=== PATIENT | male | born 1940 | race Caucasian/White ===

== ENCOUNTER → 2016-07-30 | Outpatient (CLI) | payer MEDICARE ==
[~2016-07-30] MED LIST: ALLOPURINOL100 MG PO; ASPIRIN81 M1 PO; CELEXA20 MG PO; COZAAR25 M1 PO; GLIMEPIRIDE2 MG PO; HYDROCODONE BIT1 T11 PO; KEFLEX500 M1 PO; MULTIPLE VITAMI1 CAP PO; Metformin Hydr500 MG PO; VITAMIN D32000 IU PO; ZESTRIL5 MG PO; ZOCOR20 MG PO
== END | disposition home or self-care (01) ==
LOC: RAD 14:15
DX: M47.892 Other spondylosis, cervical region (principal); M25.511 Pain in right shoulder; M25.78 Osteophyte, vertebrae; M54.2 Cervicalgia

== ENCOUNTER → 2017-02-09 | Outpatient (CLI) | payer MEDICARE ==
[2017-02-09 12:26] LABS: HEMATOCRIT 41.4 % (42.0-52.0); HEMOGLOBIN 13.4 g/dl (14.0-18.0)
[2017-02-09 12:48] LABS: CHLORIDE 103 mmol/L (98-107); POTASSIUM 4.6 mmol/L (3.5-5.1); SODIUM 137 mmol/L (136-145)
[2017-02-09 13:11] LABS: ALBUMIN 3.9 gm/dl (3.1-4.5); ALKALINE PHOSPHATASE 74 U/L (45-117); BUN 24 mg/dl (7-24); CHOLESTEROL 121 mg/dL (<200); CREATININE 1.18 mg/dL (0.70-1.30); HDL CHOLESTEROL 35 mg/dl (40-60); LDL CHOLESTEROL 49 mg/dL (9-159); SGOT/AST 14 IU/L (3-35); SGPT/ALT 26 U/L (12-78); TOTAL PROTEIN 7.6 gm/dL (6.4-8.2); TRIGLYCERIDES 185 mg/dl (<150); VLDL CHOLESTEROL 37 mg/dL (6-40)
[2017-02-10 10:03] LABS: CREATININE,URINE 94.4 mg/dL (Not Estab.); MICRO ALBUMIN/CRE RATIO 5.9 (0.0-30.0)
== END | disposition home or self-care (01) ==
LOC: LAB 11:56
PROVIDERS: Internal Medicine
DX: Z12.5 Encounter for screening for malignant neoplasm of prostate (principal); I25.10 Atherosclerotic heart disease of native coronary artery without angina pectoris; E11.9 Type 2 diabetes mellitus without complications; E78.5 Hyperlipidemia, unspecified

== ENCOUNTER → 2017-06-17 | Outpatient (CLI) | payer MEDICARE ==
[2017-06-17 11:17] LABS: BASO # 0.1 10*3/uL (0.0-0.1); BASO % 1.6 % (0.0-1.0); EOS # 0.9 10*3/uL (0.0-0.4); EOS % 10.3 % (1.0-4.0); HEMATOCRIT 42.8 % (42.0-52.0); HEMOGLOBIN 13.7 g/dl (14.0-18.0); LYMPH # 2.1 10*3/uL (1.3-4.4); MEAN CELL VOLUME 98.2 fl (80.0-94.0); MEAN CORPUSCULAR HGB 31.4 pg (27.0-31.0); MEAN PLATELET VOLUME 9.9 fl (9.6-12.3); MONO # 0.8 10*3/uL (0.1-1.0); NEUT # 4.4 10*3/uL (2.3-7.9); NEUT % 52.7 % (47.0-73.0); PLATELET COUNT AUTOMATED 262 10*3/uL (130-400); RED BLOOD COUNT 4.36 10*6/uL (4.50-5.90); RED CELL DISTRI WIDTH 12.6 % (0-14.5); WHITE BLOOD COUNT 8.3 10*3/uL (4.8-10.8)
[2017-06-17 11:40] LABS: ALBUMIN 3.9 gm/dl (3.1-4.5); ALKALINE PHOSPHATASE 72 U/L (45-117); BUN 13 mg/dl (7-24); CHLORIDE 102 mmol/L (98-107); CHOLESTEROL 137 mg/dL (<200); CREATININE 1.17 mg/dL (0.70-1.30); HDL CHOLESTEROL 29 mg/dl (40-60); LDL CHOLESTEROL 57 mg/dL (9-159); POTASSIUM 4.5 mmol/L (3.5-5.1); SGOT/AST 18 IU/L (3-35); SGPT/ALT 23 U/L (12-78); SODIUM 138 mmol/L (136-145); TOTAL PROTEIN 7.4 gm/dL (6.4-8.2); TRIGLYCERIDES 254 mg/dl (<150); VLDL CHOLESTEROL 51 mg/dL (6-40)
== END | disposition home or self-care (01) ==
LOC: LAB 10:38
PROVIDERS: Internal Medicine
DX: E78.5 Hyperlipidemia, unspecified (principal); I25.10 Atherosclerotic heart disease of native coronary artery without angina pectoris; E11.9 Type 2 diabetes mellitus without complications

== ENCOUNTER → 2017-10-04 | Outpatient (CLI) | payer MEDICARE ==
[2017-10-04 08:13] LABS: BASO # 0.1 10*3/uL (0.0-0.1); BASO % 1.6 % (0.0-1.0); EOS # 0.4 10*3/uL (0.0-0.4); EOS % 6.3 % (1.0-4.0); HEMATOCRIT 41.1 % (42.0-52.0); HEMOGLOBIN 12.9 g/dl (14.0-18.0); LYMPH # 1.8 10*3/uL (1.3-4.4); LYMPH % 26.1 % (27.0-41.0); MEAN CORPUSCULAR HGB 31.1 pg (27.0-31.0); MEAN CORPUSCULAR HGB CONC 31.4 g/dl (33.0-37.0); MONO # 0.8 10*3/uL (0.1-1.0); MONO % 11.6 % (3.0-9.0); NEUT # 3.8 10*3/uL (2.3-7.9); NEUT % 54.3 % (47.0-73.0); PLATELET COUNT AUTOMATED 254 10*3/uL (130-400); RED BLOOD COUNT 4.15 10*6/uL (4.50-5.90); RED CELL DISTRI WIDTH 12.4 % (0-14.5)
[2017-10-04 08:53] LABS: ALBUMIN 3.8 gm/dl (3.1-4.5); BUN 23 mg/dl (7-24); CHLORIDE 107 mmol/L (98-107); POTASSIUM 5.1 mmol/L (3.5-5.1); SODIUM 141 mmol/L (136-145)
[2017-10-04 08:57] LABS: ALKALINE PHOSPHATASE 63 U/L (45-117); CREATININE 1.26 mg/dL (0.70-1.30); SGOT/AST 9 IU/L (3-35); SGPT/ALT 22 U/L (12-78); TOTAL PROTEIN 7.1 gm/dL (6.4-8.2)
[2017-10-05 11:04] LABS: CREATININE,URINE 124.1 mg/dL (Not Estab.); MICRO ALBUMIN/CRE RATIO 6.4 (0.0-30.0)
== END | disposition home or self-care (01) ==
LOC: LAB 07:25
PROVIDERS: Internal Medicine
DX: E78.5 Hyperlipidemia, unspecified (principal); E11.9 Type 2 diabetes mellitus without complications; M15.0 Primary generalized (osteo)arthritis

== ENCOUNTER → 2020-11-05 | Outpatient (CLI) | payer MEDICARE ==
[2020-11-05 09:05] LABS: ALKALINE PHOSPHATASE 69 U/L (45-117); BUN 23 mg/dl (7-24); CHLORIDE 108 mmol/L (98-107); CHOLESTEROL 128 mg/dL (<200); CREATININE 1.09 mg/dL (0.70-1.30); LDL CHOLESTEROL 59 mg/dL (9-159); POTASSIUM 5.2 mmol/L (3.5-5.1); SGOT/AST 13 IU/L (3-35); SGPT/ALT 26 U/L (12-78); SODIUM 139 mmol/L (136-145); TOTAL PROTEIN 7.6 gm/dL (6.4-8.2); TRIGLYCERIDES 189 mg/dl (<150)
== END | disposition home or self-care (01) ==
LOC: LAB 08:20
PROVIDERS: ATTEND Internal Medicine
DX: E11.9 Type 2 diabetes mellitus without complications (principal); I25.10 Atherosclerotic heart disease of native coronary artery without angina pectoris; I10 Essential (primary) hypertension; Z79.4 Long term (current) use of insulin

== ENCOUNTER → 2020-12-03 | Outpatient (CLI) | payer MEDICARE | END | disposition home or self-care (01) | LOC: RAD 07:34 | PROVIDERS: ATTEND Orthopaedic Surgery | DX: M19.011 Primary osteoarthritis, right shoulder (principal) ==

== ENCOUNTER → 2021-01-20 | Outpatient (CLI) | payer MEDICARE | END | disposition home or self-care (01) | LOC: MRI 00:07 | PROVIDERS: ATTEND Physical Medicine & Rehabilitation Sports Medicine | DX: M48.02 Spinal stenosis, cervical region (principal); M50.223 Other cervical disc displacement at C6-C7 level; M47.812 Spondylosis without myelopathy or radiculopathy, cervical region ==

== ENCOUNTER → 2021-05-22 | Outpatient (CLI) | payer MEDICARE ==
[2021-05-22 11:17] LABS: POTASSIUM 5.4 mmol/L (3.5-5.1)
[2021-05-22 11:18] LABS: CREATININE 1.57 mg/dL (0.70-1.30); TOTAL PROTEIN 8.1 gm/dL (6.4-8.2)
== END | disposition home or self-care (01) ==
LOC: LAB 09:59
PROVIDERS: ATTEND Family Medicine
DX: U07.1 COVID-19 (principal)

== ENCOUNTER → 2021-09-03 | Outpatient (CLI) | payer MEDICARE ==
[2021-09-03 11:40] LABS: ALKALINE PHOSPHATASE 62 U/L (45-117); BUN 21 mg/dl (7-24); CHLORIDE 106 mmol/L (98-107); CHOLESTEROL 117 mg/dL (<200); CREATININE 1.35 mg/dL (0.70-1.30); LDL CHOLESTEROL 41 mg/dL (9-159); POTASSIUM 5.1 mmol/L (3.5-5.1); SGOT/AST 9 IU/L (3-35); SGPT/ALT 26 U/L (12-78); SODIUM 138 mmol/L (136-145); TOTAL PROTEIN 7.1 gm/dL (6.4-8.2); TRIGLYCERIDES 234 mg/dl (<150)
== END | disposition home or self-care (01) ==
LOC: LAB 10:32
PROVIDERS: ATTEND Internal Medicine
DX: I10 Essential (primary) hypertension (principal); E11.9 Type 2 diabetes mellitus without complications; I25.10 Atherosclerotic heart disease of native coronary artery without angina pectoris

== ENCOUNTER → 2022-01-06 | Outpatient (CLI) | payer MEDICARE ==
[2022-01-06 12:52] LABS: BASO # 0.1 10*3/uL (0.0-0.1); BASO % 1.6 % (0.0-1.0); EOS # 0.4 10*3/uL (0.0-0.4); EOS % 5.3 % (1.0-4.0); HEMATOCRIT 39.6 % (42.0-52.0); LYMPH % 24.7 % (27.0-41.0); MEAN CELL VOLUME 98.3 fl (80.0-94.0); MEAN CORPUSCULAR HGB CONC 31.6 g/dl (33.0-37.0); MEAN PLATELET VOLUME 9.4 fl (9.6-12.3); MONO # 1.1 10*3/uL (0.1-1.0); MONO % 13.2 % (3.0-9.0); NEUT # 4.5 10*3/uL (2.3-7.9); PLATELET COUNT AUTOMATED 293 10*3/uL (130-400); RED BLOOD COUNT 4.03 10*6/uL (4.50-5.90); RED CELL DISTRI WIDTH 13.2 % (0-14.5); WHITE BLOOD COUNT 8.1 10*3/uL (4.8-10.8)
[2022-01-06 13:11] LABS: BUN 19 mg/dl (7-24); CHLORIDE 107 mmol/L (98-107); POTASSIUM 5.3 mmol/L (3.5-5.1); SODIUM 136 mmol/L (136-145)
[2022-01-06 13:13] LABS: ALKALINE PHOSPHATASE 65 U/L (45-117); CHOLESTEROL 109 mg/dL (<200); CREATININE 1.19 mg/dL (0.70-1.30); LDL CHOLESTEROL 36 mg/dL (9-159); SGOT/AST 13 IU/L (3-35); SGPT/ALT 23 U/L (12-78); TOTAL PROTEIN 7.5 gm/dL (6.4-8.2); TRIGLYCERIDES 207 mg/dl (<150)
== END | disposition home or self-care (01) ==
LOC: LAB 12:29
DX: E11.9 Type 2 diabetes mellitus without complications (principal)

== ENCOUNTER 2022-04-26 14:18 | Emergency (ER) | payer MEDICARE ==
[~2022-04-26] VITALS: Ht 182.8 cm; Wt 100.2 kg
[2022-04-26] MEDS ORDERED: CEPHALEXIN500 M1 PO (17:45)
[2022-04-26] MEDS ORDERED: HYDROCODONE-AC1 EAC1 PO (18:20)
== END 2022-04-26 17:57 | disposition home or self-care (01) ==
LOC: ED 14:18
DX: S61.012A Laceration without foreign body of left thumb without damage to nail, initial encounter (principal); Z98.890 Other specified postprocedural states; W27.0XXA Contact with workbench tool, initial encounter; Y93.89 Activity, other specified; Y92.89 Other specified places as the place of occurrence of the external cause; Y99.0 Civilian activity done for income or pay

== ENCOUNTER → 2022-04-28 | Outpatient (CLI) | payer MEDICARE ==
[~2022-04-28] MED LIST changes: +CEPHALEXIN500 M1 PO; +HYDROCODONE-AC1 EAC1 PO
== END ==
LOC: WOUNDCARE 01:14
PROVIDERS: ATTEND Nurse Practitioner Family
DX: S61.112A Laceration without foreign body of left thumb with damage to nail, initial encounter (principal); E11.9 Type 2 diabetes mellitus without complications; E78.5 Hyperlipidemia, unspecified; I10 Essential (primary) hypertension; I25.10 Atherosclerotic heart disease of native coronary artery without angina pectoris; Z87.891 Personal history of nicotine dependence; Z95.1 Presence of aortocoronary bypass graft; Z98.49 Cataract extraction status, unspecified eye; Z96.651 Presence of right artificial knee joint; Z85.46 Personal history of malignant neoplasm of prostate; Z79.84 Long term (current) use of oral hypoglycemic drugs; X58.XXXA Exposure to other specified factors, initial encounter; Y93.89 Activity, other specified; Y92.89 Other specified places as the place of occurrence of the external cause; Y99.8 Other external cause status

== ENCOUNTER → 2022-05-04 | Outpatient (CLI) | payer MEDICARE | END | disposition home or self-care (01) | LOC: WOUNDCARE 00:24 | PROVIDERS: ATTEND Nurse Practitioner Family | DX: S61.112D Laceration without foreign body of left thumb with damage to nail, subsequent encounter (principal); E11.9 Type 2 diabetes mellitus without complications; E78.5 Hyperlipidemia, unspecified; Z87.891 Personal history of nicotine dependence; Z95.1 Presence of aortocoronary bypass graft; Z98.49 Cataract extraction status, unspecified eye; Z96.651 Presence of right artificial knee joint; Z85.46 Personal history of malignant neoplasm of prostate; X58.XXXD Exposure to other specified factors, subsequent encounter ==

== ENCOUNTER → 2022-05-11 | Outpatient (CLI) | payer MEDICARE | END | disposition home or self-care (01) | LOC: WOUNDCARE 04:28 | PROVIDERS: ATTEND Nurse Practitioner Family | DX: S61.112D Laceration without foreign body of left thumb with damage to nail, subsequent encounter (principal); E11.9 Type 2 diabetes mellitus without complications; E78.5 Hyperlipidemia, unspecified; Z87.891 Personal history of nicotine dependence; Z95.1 Presence of aortocoronary bypass graft; Z98.49 Cataract extraction status, unspecified eye; Z96.651 Presence of right artificial knee joint; Z85.46 Personal history of malignant neoplasm of prostate; X58.XXXD Exposure to other specified factors, subsequent encounter ==

== ENCOUNTER → 2022-05-18 | Outpatient (CLI) | payer MEDICARE | END | disposition home or self-care (01) | LOC: WOUNDCARE 01:24 | PROVIDERS: ATTEND Nurse Practitioner Family | DX: S61.112D Laceration without foreign body of left thumb with damage to nail, subsequent encounter (principal); E11.9 Type 2 diabetes mellitus without complications; E78.5 Hyperlipidemia, unspecified; Z87.891 Personal history of nicotine dependence; Z95.1 Presence of aortocoronary bypass graft; Z98.49 Cataract extraction status, unspecified eye; Z96.651 Presence of right artificial knee joint; Z85.46 Personal history of malignant neoplasm of prostate; X58.XXXD Exposure to other specified factors, subsequent encounter ==

== ENCOUNTER → 2022-06-30 | Outpatient (CLI) | payer MEDICARE ==
[2022-06-30 11:13] LABS: BUN 23 mg/dl (9-23); CHLORIDE 106 mmol/L (98-107); POTASSIUM 5.4 mmol/L (3.4-5.1)
== END | disposition home or self-care (01) ==
LOC: LAB 10:17
PROVIDERS: ATTEND Internal Medicine
DX: E11.9 Type 2 diabetes mellitus without complications (principal); I10 Essential (primary) hypertension

== ENCOUNTER → 2022-07-09 | Outpatient (CLI) | payer MEDICARE ==
[2022-07-09 10:37] LABS: POTASSIUM 5.1 mmol/L (3.4-5.1)
== END | disposition home or self-care (01) ==
LOC: LAB 09:56
PROVIDERS: ATTEND Internal Medicine
DX: E87.5 Hyperkalemia (principal)

== ENCOUNTER → 2022-10-07 | Outpatient (CLI) | payer MEDICARE ==
[2022-10-07 10:04] LABS: BASO # 0.1 10*3/uL (0.0-0.1); BASO % 1.2 % (0.0-1.0); EOS # 0.4 10*3/uL (0.0-0.4); EOS % 5.5 % (1.0-4.0); HEMATOCRIT 41.8 % (42.0-52.0); LYMPH # 1.4 10*3/uL (1.3-4.4); LYMPH % 18.2 % (27.0-41.0); MEAN CELL VOLUME 96.5 fl (80.0-94.0); MEAN CORPUSCULAR HGB 31.6 pg (27.0-31.0); MEAN CORPUSCULAR HGB CONC 32.8 g/dl (33.0-37.0); MEAN PLATELET VOLUME 9.3 fl (9.6-12.3); MONO # 0.8 10*3/uL (0.1-1.0); MONO % 10.1 % (3.0-9.0); NEUT % 64.7 % (47.0-73.0); PLATELET COUNT AUTOMATED 283 10*3/uL (130-400); RED BLOOD COUNT 4.33 10*6/uL (4.50-5.90); RED CELL DISTRI WIDTH 12.9 % (0-14.5); WHITE BLOOD COUNT 7.8 10*3/uL (4.8-10.8)
[2022-10-07 10:21] LABS: URINE CREATININE RANDOM 264.86 mg/dL
[2022-10-07 10:30] LABS: POTASSIUM 4.4 mmol/L (3.4-5.1); TOTAL PROTEIN 7.2 gm/dL (6.0-8.0)
== END ==
LOC: LAB 09:47
PROVIDERS: ATTEND Internal Medicine
DX: Z76.0 Encounter for issue of repeat prescription (principal); E11.9 Type 2 diabetes mellitus without complications; I25.10 Atherosclerotic heart disease of native coronary artery without angina pectoris; C61 Malignant neoplasm of prostate; I10 Essential (primary) hypertension; R53.82 Chronic fatigue, unspecified

== ENCOUNTER → 2023-01-20 | Outpatient (CLI) | payer MEDICARE ==
[2023-01-20 14:20] LABS: ALKALINE PHOSPHATASE 65 U/L (46-116); BUN 18 mg/dl (9-23); CHLORIDE 106 mmol/L (98-107); POTASSIUM 4.9 mmol/L (3.4-5.1); SGPT/ALT 13 U/L (5-49); TOTAL PROTEIN 6.8 gm/dL (6.0-8.0)
== END | disposition home or self-care (01) ==
LOC: LAB 13:24
PROVIDERS: ATTEND Internal Medicine
DX: E11.9 Type 2 diabetes mellitus without complications (principal); I25.10 Atherosclerotic heart disease of native coronary artery without angina pectoris; J34.2 Deviated nasal septum; I10 Essential (primary) hypertension

== ENCOUNTER → 2023-05-12 | Outpatient (CLI) | payer MEDICARE ==
[2023-05-12 15:57] LABS: ALKALINE PHOSPHATASE 67 U/L (46-116); BUN 19 mg/dl (9-23); CHLORIDE 104 mmol/L (98-107); POTASSIUM 4.9 mmol/L (3.4-5.1); SGPT/ALT 16 U/L (5-49); TOTAL PROTEIN 7.2 gm/dL (6.0-8.0)
== END | disposition home or self-care (01) ==
LOC: LAB 14:40
PROVIDERS: ATTEND Internal Medicine
DX: I12.9 Hypertensive chronic kidney disease with stage 1 through stage 4 chronic kidney disease, or unspecified chronic kidney disease (principal); E11.22 Type 2 diabetes mellitus with diabetic chronic kidney disease; N18.31 Chronic kidney disease, stage 3a; C61 Malignant neoplasm of prostate; I25.10 Atherosclerotic heart disease of native coronary artery without angina pectoris; G40.89 Other seizures

== ENCOUNTER 2023-05-15 23:53 | Inpatient (IN) | payer MEDICARE ==
[~2023-05-15] VITALS: Ht 182.8 cm; Wt 97.1 kg
[2023-05-16] VITALS (7 sets, daily range): BP systolic 123–180; BP diastolic 54–94
[2023-05-16 00:27] LABS: BASO # 0.1 10*3/uL (0.0-0.1); EOS # 0.3 10*3/uL (0.0-0.4); HEMATOCRIT 41.6 % (42.0-52.0); LYMPH # 0.7 10*3/uL (1.3-4.4); LYMPH % 5.8 % (27.0-41.0); MEAN CELL VOLUME 98.8 fl (80.0-94.0); MEAN CORPUSCULAR HGB 31.4 pg (27.0-31.0); MEAN CORPUSCULAR HGB CONC 31.7 g/dl (33.0-37.0); MEAN PLATELET VOLUME 9.7 fl (9.6-12.3); NEUT # 9.3 10*3/uL (2.3-7.9); NEUT % 80.9 % (47.0-73.0); PLATELET COUNT AUTOMATED 261 10*3/uL (130-400); RED BLOOD COUNT 4.21 10*6/uL (4.50-5.90); RED CELL DISTRI WIDTH 12.9 % (0-14.5); WHITE BLOOD COUNT 11.5 10*3/uL (4.8-10.8)
[2023-05-16 00:48] LABS: POTASSIUM 4.9 mmol/L (3.4-5.1); TOTAL PROTEIN 7.4 gm/dL (6.0-8.0)
[2023-05-16] MEDS ORDERED: SODIUM CHLORIDE 0.9% 1,000 ML IV ONE (01:45)
[2023-05-16] MEDS ORDERED: Ceftriaxone Sodium 1 GM/10 ML SYR IV ONE (03:10)
[2023-05-16] MEDS ORDERED: AZITHROMYCIN 250 ML IV ONE (03:10)
[2023-05-16] MEDS ORDERED: ACETAMINOPHEN 650 MG SUPP R PRN (03:30)
[2023-05-16] MEDS ORDERED: ACETAMINOPHEN 325 MG TAB PO PRN (03:30)
[2023-05-16] MEDS ORDERED: BISACODYL 5 MG TAB PO PRN (03:30)
[2023-05-16] MEDS ORDERED: Magnesium Hydroxide 30 ML UDC PO PRN (03:30)
[2023-05-16] MEDS ORDERED: DEXTROSE 10 % IN WATER 250 ML IV PRN (03:35)
[2023-05-16] MEDS ORDERED: PLAVIX75 M1 PO (03:55)
[2023-05-16] MEDS ORDERED: JANUVIA50 MG PO (03:55)
[2023-05-16] MEDS ORDERED: KEPPRA500 MG PO (03:56)
[2023-05-16] MEDS ORDERED: TYLENOL EXTRA500 MG PO (03:58)
[2023-05-16 04:30] LABS: BASO # 0.1 10*3/uL (0.0-0.1); BASO % 1.1 % (0.0-1.0); EOS # 0.3 10*3/uL (0.0-0.4); EOS % 2.8 % (1.0-4.0); HEMATOCRIT 36.3 % (42.0-52.0); LYMPH # 0.9 10*3/uL (1.3-4.4); LYMPH % 9.1 % (27.0-41.0); MEAN CELL VOLUME 97.3 fl (80.0-94.0); MEAN CORPUSCULAR HGB 30.8 pg (27.0-31.0); MEAN CORPUSCULAR HGB CONC 31.7 g/dl (33.0-37.0); MEAN PLATELET VOLUME 9.5 fl (9.6-12.3); MONO # 1.2 10*3/uL (0.1-1.0); MONO % 11.4 % (3.0-9.0); NEUT # 7.6 10*3/uL (2.3-7.9); NEUT % 75.4 % (47.0-73.0); PLATELET COUNT AUTOMATED 229 10*3/uL (130-400); RED BLOOD COUNT 3.73 10*6/uL (4.50-5.90); WHITE BLOOD COUNT 10.1 10*3/uL (4.8-10.8)
[2023-05-16] MEDS ORDERED: TEMAZEPAM 15 MG CAP PO ONE (04:55)
[2023-05-16] MEDS ORDERED: GUAIFENESIN 600 MG TAB ER PO SCH (05:00)
[2023-05-16 05:01] LABS: VITAMIN D, 25-HYDROXY 38.1 ng/mL (30-100)
[2023-05-16 05:05] LABS: FREE T4 0.84 ng/dl (0.89-1.76); POTASSIUM 4.6 mmol/L (3.4-5.1); TOTAL PROTEIN 6.2 gm/dL (6.0-8.0)
[2023-05-16] MEDS ORDERED: methylPREDNISolone sod succ 125 MG VIAL IV ONE (05:10)
[2023-05-16] MEDS ORDERED: Albuterol Sulf/Ipratropium 3 ML VIAL NEB PRN (05:15)
[2023-05-16] MEDS ORDERED: SODIUM CHLORIDE 0.9% 1,000 ML IV SCH (05:20)
[2023-05-16] MEDS ORDERED: INSULIN LISPRO 1 UNIT/0.01 ML SQ SCH (07:30)
[2023-05-16] MEDS ORDERED: REMDESIVIR 200 MG in SODIUM CHLORIDE 0.9% 210 ML IV ONE (09:00)
[2023-05-16] MEDS ORDERED: methylPREDNISolone sod succ 40 MG VIAL IV SCH (10:00)
[2023-05-16] MEDS ORDERED: Enoxaparin Sodium 40 MG/0.4 ML SYR SC SCH (10:00)
[2023-05-16] MEDS ORDERED: BENZONATATE 100 MG CAP PO PRN (13:40)
[2023-05-16] MEDS ORDERED: Cholecalciferol 2,000 UNIT TABLET (50 MCG) PO SCH (14:17)
[2023-05-16] MEDS ORDERED: LEVETIRACETAM 500 MG TAB PO SCH (14:18)
[2023-05-16] MEDS ORDERED: Losartan Potassium 100 MG TABLET PO SCH (14:18)
[2023-05-16] MEDS ORDERED: Clopidogrel Hydrogen Sulfate 75 MG TAB PO ONE (14:20)
[2023-05-16] MEDS ORDERED: SIMVASTATIN 20 MG TAB PO SCH (22:00)
[2023-05-16] MEDS ORDERED: ASPIRIN ENTERIC COATED 81 MG TAB PO SCH (22:00)
[2023-05-17] VITALS: BP 133/49
[2023-05-17] MEDS ORDERED: AZITHROMYCIN 250 ML IV SCH (06:00)
[2023-05-17] MEDS ORDERED: Ceftriaxone Sodium 1 GM in SYRINGE INFUSION 10 ML IV SCH (06:00)
[2023-05-17 06:55] LABS: HEMATOCRIT 35.5 % (42.0-52.0); MEAN CELL VOLUME 97.5 fl (80.0-94.0); MEAN CORPUSCULAR HGB 31.6 pg (27.0-31.0); MEAN CORPUSCULAR HGB CONC 32.4 g/dl (33.0-37.0); MEAN PLATELET VOLUME 9.9 fl (9.6-12.3); PLATELET COUNT AUTOMATED 229 10*3/uL (130-400); RED BLOOD COUNT 3.64 10*6/uL (4.50-5.90); RED CELL DISTRI WIDTH 13.1 % (0-14.5); WHITE BLOOD COUNT 10.5 10*3/uL (4.8-10.8)
[2023-05-17 06:56] LABS: MANUAL DIFF REFLEX YES
[2023-05-17 07:28] LABS: TOTAL CELLS COUNTED 100 #CELLS
[2023-05-17 07:29] LABS: BURR CELLS FEW; PLATELET SUFFICIENCY NORMAL (NORMAL); POLYCHROMASIA SLIGHT
[2023-05-17 07:46] LABS: BUN 27 mg/dl (9-23); CHLORIDE 109 mmol/L (98-107); POTASSIUM 4.4 mmol/L (3.4-5.1)
[2023-05-17 08:00] VITALS: BP 128/70
[2023-05-17] MEDS ORDERED: Clopidogrel Hydrogen Sulfate 75 MG TAB PO SCH (10:00)
[2023-05-17] MEDS ORDERED: REMDESIVIR 100 MG in SODIUM CHLORIDE 0.9% 230 ML IV SCH (10:00)
[2023-05-17] MEDS ORDERED: Dexamethasone Sodium Phospha 4 MG/ML VIAL IV SCH (10:00)
[2023-05-17 12:00] VITALS: BP 156/59
[2023-05-17 16:00] VITALS: BP 145/71
[2023-05-17 20:00] VITALS: BP 166/61
[2023-05-18] VITALS: BP 143/41
[2023-05-18 07:01] LABS: BASO % 0.2 % (0.0-1.0); EOS % 0.1 % (1.0-4.0); HEMATOCRIT 35.8 % (42.0-52.0); LYMPH # 1.7 10*3/uL (1.3-4.4); LYMPH % 15.9 % (27.0-41.0); MEAN CELL VOLUME 97.5 fl (80.0-94.0); MEAN CORPUSCULAR HGB 30.8 pg (27.0-31.0); MEAN CORPUSCULAR HGB CONC 31.6 g/dl (33.0-37.0); MONO # 1.1 10*3/uL (0.1-1.0); MONO % 10.8 % (3.0-9.0); NEUT # 7.6 10*3/uL (2.3-7.9); NEUT % 72.7 % (47.0-73.0); PLATELET COUNT AUTOMATED 233 10*3/uL (130-400); RED BLOOD COUNT 3.67 10*6/uL (4.50-5.90); RED CELL DISTRI WIDTH 12.9 % (0-14.5); WHITE BLOOD COUNT 10.5 10*3/uL (4.8-10.8)
[2023-05-18 07:29] LABS: BUN 24 mg/dl (9-23); CHLORIDE 106 mmol/L (98-107); POTASSIUM 4.3 mmol/L (3.4-5.1)
[2023-05-18 08:00] VITALS: BP 154/57
[2023-05-18] MEDS ORDERED: DEXAMETHASONE6 MG PO (11:52)
[2023-05-18] MEDS ORDERED: DOXYCYCLINE HY100 M3 PO (11:52)
[2023-05-18 12:00] VITALS: BP 154/69
== END 2023-05-18 15:50 | disposition home or self-care (01) | DRG 177 ==
LOC: ED 23:53 → EDHOLD 05-16 03:16 → 4E 05-16 16:04
PROVIDERS: Family Medicine; Internal Medicine; Student in an Organized Health Care Education/Training Program; ADMIT Internal Medicine; ATTEND Internal Medicine
PROC: XW033E5 Introduction of Remdesivir Anti-infective into Peripheral Vein, Percutaneous Approach, New Technology Group 5 (ICD-10-PCS; principal; 2023-05-17)
DX: U07.1 COVID-19 (principal); J18.9 Pneumonia, unspecified organism; N17.0 Acute kidney failure with tubular necrosis; E87.20 Acidosis, unspecified; E87.1 Hypo-osmolality and hyponatremia; J44.0 Chronic obstructive pulmonary disease with (acute) lower respiratory infection; R74.01 Elevation of levels of liver transaminase levels; E11.65 Type 2 diabetes mellitus with hyperglycemia; D53.9 Nutritional anemia, unspecified; E86.0 Dehydration; I25.10 Atherosclerotic heart disease of native coronary artery without angina pectoris; E78.1 Pure hyperglyceridemia; E11.22 Type 2 diabetes mellitus with diabetic chronic kidney disease; N18.31 Chronic kidney disease, stage 3a; M1A.9XX0 Chronic gout, unspecified, without tophus (tophi); F32.9 Major depressive disorder, single episode, unspecified; R56.9 Unspecified convulsions; N40.0 Benign prostatic hyperplasia without lower urinary tract symptoms; N18.9 Chronic kidney disease, unspecified; Z79.1 Long term (current) use of non-steroidal anti-inflammatories (NSAID); Z79.82 Long term (current) use of aspirin; Z79.899 Other long term (current) drug therapy; Z79.84 Long term (current) use of oral hypoglycemic drugs

== ENCOUNTER → 2023-06-02 | Outpatient (CLI) | payer MEDICARE ==
[~2023-06-02] MED LIST changes: +DEXAMETHASONE6 MG PO; +DOXYCYCLINE HY100 M3 PO; +JANUVIA50 MG PO; +KEPPRA500 MG PO; +PLAVIX75 M1 PO; +TYLENOL EXTRA500 MG PO
[2023-06-02 16:47] LABS: BASO # 0.1 10*3/uL (0.0-0.1); BASO % 0.9 % (0.0-1.0); EOS # 0.3 10*3/uL (0.0-0.4); EOS % 2.8 % (1.0-4.0); HEMATOCRIT 35.6 % (42.0-52.0); LYMPH # 1.4 10*3/uL (1.3-4.4); LYMPH % 15.2 % (27.0-41.0); MEAN CELL VOLUME 98.6 fl (80.0-94.0); MEAN CORPUSCULAR HGB CONC 31.5 g/dl (33.0-37.0); MEAN PLATELET VOLUME 9.8 fl (9.6-12.3); MONO # 1.4 10*3/uL (0.1-1.0); MONO % 14.3 % (3.0-9.0); NEUT # 6.3 10*3/uL (2.3-7.9); NEUT % 66.4 % (47.0-73.0); PLATELET COUNT AUTOMATED 255 10*3/uL (130-400); RED BLOOD COUNT 3.61 10*6/uL (4.50-5.90); RED CELL DISTRI WIDTH 12.6 % (0-14.5); WHITE BLOOD COUNT 9.5 10*3/uL (4.8-10.8)
[2023-06-02 17:07] LABS: POTASSIUM 4.5 mmol/L (3.4-5.1); TOTAL PROTEIN 6.6 gm/dL (6.0-8.0)
== END | disposition home or self-care (01) ==
LOC: LAB 16:16
PROVIDERS: ATTEND Internal Medicine
DX: J43.2 Centrilobular emphysema (principal); N17.9 Acute kidney failure, unspecified; E11.22 Type 2 diabetes mellitus with diabetic chronic kidney disease; I12.9 Hypertensive chronic kidney disease with stage 1 through stage 4 chronic kidney disease, or unspecified chronic kidney disease; N18.31 Chronic kidney disease, stage 3a; Z86.16 Personal history of COVID-19

== ENCOUNTER → 2023-08-17 | Outpatient (CLI) | payer MEDICARE | END | disposition home or self-care (01) | LOC: MRI 09:00 | PROVIDERS: ATTEND Physical Medicine & Rehabilitation Sports Medicine | DX: M41.26 Other idiopathic scoliosis, lumbar region (principal); M48.061 Spinal stenosis, lumbar region without neurogenic claudication; M47.26 Other spondylosis with radiculopathy, lumbar region; M51.37 Other intervertebral disc degeneration, lumbosacral region; M48.07 Spinal stenosis, lumbosacral region ==

== ENCOUNTER → 2023-10-11 | Outpatient (CLI) | payer MEDICARE ==
[2023-10-11 10:25] LABS: ALKALINE PHOSPHATASE 61 U/L (46-116); BUN 22 mg/dl (9-23); CHLORIDE 107 mmol/L (98-107); CHOLESTEROL 128 mg/dL (<200); LDL CHOLESTEROL 60 mg/dL (9-159); POTASSIUM 5.3 mmol/L (3.4-5.1); SGPT/ALT 15 U/L (5-49); TOTAL PROTEIN 7.3 gm/dL (6.0-8.0); TRIGLYCERIDES 168 mg/dl (<150)
== END | disposition home or self-care (01) ==
LOC: LAB 09:24
PROVIDERS: ATTEND Internal Medicine
DX: E11.9 Type 2 diabetes mellitus without complications (principal); I10 Essential (primary) hypertension; I25.10 Atherosclerotic heart disease of native coronary artery without angina pectoris; G47.33 Obstructive sleep apnea (adult) (pediatric)

== ENCOUNTER → 2024-02-09 | Outpatient (CLI) | payer MEDICARE ==
[2024-02-09 12:11] LABS: BASO # 0.1 10*3/uL (0.0-0.1); BASO % 1.7 % (0.0-1.0); EOS # 0.4 10*3/uL (0.0-0.4); EOS % 5.6 % (1.0-4.0); HEMATOCRIT 38.4 % (42.0-52.0); MEAN CELL VOLUME 97.2 fl (80.0-94.0); MEAN CORPUSCULAR HGB 32.4 pg (27.0-31.0); MEAN CORPUSCULAR HGB CONC 33.3 g/dl (33.0-37.0); MEAN PLATELET VOLUME 9.4 fl (9.6-12.3); MONO # 0.8 10*3/uL (0.1-1.0); MONO % 10.6 % (3.0-9.0); NEUT # 4.8 10*3/uL (2.3-7.9); NEUT % 62.5 % (47.0-73.0); PLATELET COUNT AUTOMATED 273 10*3/uL (130-400); RED BLOOD COUNT 3.95 10*6/uL (4.50-5.90); RED CELL DISTRI WIDTH 12.9 % (0-14.5); WHITE BLOOD COUNT 7.7 10*3/uL (4.8-10.8)
[2024-02-09 12:40] LABS: POTASSIUM 4.8 mmol/L (3.4-5.1); TOTAL PROTEIN 7.2 gm/dL (6.0-8.0)
== END | disposition home or self-care (01) ==
LOC: LAB 11:48
PROVIDERS: ATTEND Internal Medicine
DX: I10 Essential (primary) hypertension (principal); J43.2 Centrilobular emphysema; G40.89 Other seizures

== ENCOUNTER 2024-04-10 18:18 | Inpatient (IN) | payer MEDICARE ==
[~2024-04-10] VITALS: Ht 182.8 cm; Wt 97.5 kg
[~2024-04-10 18:18] MED LIST changes: +GLUCOPHAGE500 MG PO; -Metformin Hydr500 MG PO
[2024-04-10 18:39] VITALS: BP 182/50
[2024-04-10 19:41] LABS: HEMATOCRIT 38.5 % (42.0-52.0); MEAN CELL VOLUME 99.5 fl (80.0-94.0); MEAN CORPUSCULAR HGB 31.3 pg (27.0-31.0); MEAN CORPUSCULAR HGB CONC 31.4 g/dl (33.0-37.0); MEAN PLATELET VOLUME 9.3 fl (9.6-12.3); PLATELET COUNT AUTOMATED 248 10*3/uL (130-400); RED BLOOD COUNT 3.87 10*6/uL (4.50-5.90); RED CELL DISTRI WIDTH 12.6 % (0-14.5); WHITE BLOOD COUNT 15.1 10*3/uL (4.8-10.8)
[2024-04-10 19:47] LABS: MANUAL DIFF REFLEX YES
[2024-04-10 19:50] VITALS: BP 165/35
[2024-04-10 19:57] LABS: ACT PARTIAL THROMBO TIME 25.4 SECONDS (20.0-32.1)
[2024-04-10 19:58] LABS: ALKALINE PHOSPHATASE 65 U/L (46-116); BUN 16 mg/dl (9-23); CHLORIDE 104 mmol/L (98-107); SGPT/ALT 17 U/L (5-49)
[2024-04-10] MEDS ORDERED: Ondansetron Hydrochloride 4 MG/2 ML VIAL IV ONE (20:05)
[2024-04-10 20:08] LABS: BURR CELLS FEW; PLATELET SUFFICIENCY NORMAL (NORMAL); TOTAL CELLS COUNTED 100 #CELLS
[2024-04-10 20:09] LABS: ACANTHOCYTES FEW
[2024-04-10] MEDS ORDERED: ADVAIR HFA 115-12 GM INH (20:21)
[2024-04-10] MEDS ORDERED: GLIMEPIRIDE2 MG PO (20:23)
[2024-04-10 21:17] VITALS: BP 142/62
[2024-04-10] MEDS ORDERED: ACETAMINOPHEN 325 MG TAB PO ONE (21:50)
[2024-04-10] MEDS ORDERED: Piperacillin Sodium/Tazobact 50 ML IV ONE (22:10)
[2024-04-10] MEDS ORDERED: Vancomycin Hydrochloride 250 ML IV ONE (22:10)
[2024-04-10] MEDS ORDERED: HEPARIN SODIUM 250 ML IV ONE (22:45)
[2024-04-11] MEDS ORDERED: Magnesium Hydroxide 30 ML UDC PO PRN (00:10)
[2024-04-11] MEDS ORDERED: TEMAZEPAM 15 MG CAP PO PRN (00:10)
[2024-04-11] MEDS ORDERED: BISACODYL 10 MG SUPP R PRN (00:10)
[2024-04-11] MEDS ORDERED: ACETAMINOPHEN 650 MG SUPP R PRN (00:10)
[2024-04-11] MEDS ORDERED: Acetaminophen/Hydrocodone 5 MG/325 MG TABLET PO PRN (00:10)
[2024-04-11] MEDS ORDERED: Ondansetron Hydrochloride 4 MG/2 ML VIAL IV PRN (00:10)
[2024-04-11] MEDS ORDERED: BISACODYL 5 MG TAB PO PRN (00:10)
[2024-04-11] MEDS ORDERED: HEPARIN SODIUM 250 ML IV SCH ×2 (00:10→09:10)
[2024-04-11] MEDS ORDERED: MORPHINE Sulfate 2 MG/ML SYR IV PRN (00:10)
[2024-04-11] MEDS ORDERED: ACETAMINOPHEN 325 MG TAB PO PRN (00:10)
[2024-04-11] MEDS ORDERED: ASPIRIN 325 MG TAB PO ONE (00:15)
[2024-04-11] MEDS ORDERED: Vancomycin Hydrochloride 1,000 MG in SODIUM CHLORIDE 0.9% 250 ML IV SCH ×2 (00:15→16:00)
[2024-04-11 00:25] LABS: BILIRUBIN Negative (Negative); BLOOD Negative (Negative); CLARITY Clear (Clear); COLOR Yellow (Yellow); GLUCOSE Negative (Negative); KETONE Trace (Negative); LEUKO ESTERASE Negative (Negative); NITRITE Negative (Negative); PH 5.5 (4.5-8.0); SPECIFIC GRAVITY 1.025 (1.001-1.030)
[2024-04-11 00:41] VITALS: BP 115/40
[2024-04-11 01:04] LABS: BACTERIA TRACE; FINE GRANULAR CAST 0-2; MUCOUS TRACE
[2024-04-11 01:58] VITALS: BP 121/43
[2024-04-11] MEDS ORDERED: FISH OIL 1,0001 EAC1 PO (02:54)
[2024-04-11] MEDS ORDERED: METFORMIN XR500 MG PO (03:04)
[2024-04-11] MEDS ORDERED: PRESERVISION A1 EAC7 PO (03:08)
[2024-04-11] MEDS ORDERED: Piperacillin Sodium/Tazobact 50 ML IV SCH (04:00)
[2024-04-11] MEDS ORDERED: DEXTROSE 10 % IN WATER 250 ML IV PRN (05:25)
[2024-04-11 07:14] LABS: HEMATOCRIT 35.6 % (42.0-52.0); MEAN CELL VOLUME 100.3 fl (80.0-94.0); MEAN CORPUSCULAR HGB 31.3 pg (27.0-31.0); MEAN CORPUSCULAR HGB CONC 31.2 g/dl (33.0-37.0); MEAN PLATELET VOLUME 9.9 fl (9.6-12.3); PLATELET COUNT AUTOMATED 225 10*3/uL (130-400); RED BLOOD COUNT 3.55 10*6/uL (4.50-5.90); RED CELL DISTRI WIDTH 12.6 % (0-14.5); WHITE BLOOD COUNT 11.9 10*3/uL (4.8-10.8)
[2024-04-11 07:21] LABS: MANUAL DIFF REFLEX YES
[2024-04-11] MEDS ORDERED: INSULIN LISPRO 1 UNIT/0.01 ML SQ SCH (07:30)
[2024-04-11 07:41] LABS: FREE T4 0.93 ng/dl (0.89-1.76); POTASSIUM 4.3 mmol/L (3.4-5.1)
[2024-04-11 07:43] LABS: PLATELET SUFFICIENCY NORMAL (NORMAL); POLYCHROMASIA SLIGHT; TOTAL CELLS COUNTED 100 #CELLS
[2024-04-11] MEDS ORDERED: Technetium Tc 99M Pentetate 1 KIT KIT IV SCH (08:05)
[2024-04-11] MEDS ORDERED: Technetium Tc 99M MacroAg Albu 1 KIT KIT IV SCH (08:05)
[2024-04-11 09:00] VITALS: BP 145/64
[2024-04-11] MEDS ORDERED: BUDESONIDE 0.5 MG AMP NEB SCH (09:55)
[2024-04-11] MEDS ORDERED: Albuterol Sulfate 2.5 MG/3 ML VIAL NEB SCH (09:55)
[2024-04-11] MEDS ORDERED: Metoprolol Tartrate 25 MG TAB PO SCH (10:00)
[2024-04-11] MEDS ORDERED: LEVETIRACETAM 500 MG TAB PO SCH (10:00)
[2024-04-11] MEDS ORDERED: MULTIVITAMIN 1 TAB TAB PO SCH (10:00)
[2024-04-11] MEDS ORDERED: ATORVASTATIN CALCIUM 80 MG TAB PO SCH (10:00)
[2024-04-11] MEDS ORDERED: Fluticasone Propionate/Salmeterol 250/50 diskus INH SCH (10:00)
[2024-04-11] MEDS ORDERED: CITALOPRAM 20 MG TAB PO SCH (10:00)
[2024-04-11] MEDS ORDERED: ASPIRIN ENTERIC COATED 81 MG TAB PO SCH (10:00)
[2024-04-11] MEDS ORDERED: Losartan Potassium 25 MG TAB PO SCH (10:00)
[2024-04-11] MEDS ORDERED: Cholecalciferol 5,000 IU CAP (125 MCG) PO SCH (10:00)
[2024-04-11] MEDS ORDERED: Enoxaparin Sodium 40 MG/0.4 ML SYR SC SCH (10:00)
[2024-04-11 12:00] VITALS: BP 140/60
[2024-04-11 16:00] VITALS: BP 130/59
[2024-04-11 20:00] VITALS: BP 135/58
[2024-04-11] MEDS ORDERED: Clopidogrel Hydrogen Sulfate 75 MG TAB PO SCH (22:00)
[2024-04-11] MEDS ORDERED: Fish Oil 500 MG CAP PO SCH (22:00)
[2024-04-12] VITALS: BP 131/46
[2024-04-12 06:06] LABS: BASO # 0.1 10*3/uL (0.0-0.1); EOS # 0.4 10*3/uL (0.0-0.4); EOS % 3.5 % (1.0-4.0); HEMATOCRIT 32.1 % (42.0-52.0); MEAN CORPUSCULAR HGB 31.5 pg (27.0-31.0); MEAN CORPUSCULAR HGB CONC 31.5 g/dl (33.0-37.0); MONO # 1.4 10*3/uL (0.1-1.0); MONO % 14.2 % (3.0-9.0); NEUT # 6.8 10*3/uL (2.3-7.9); NEUT % 67.4 % (47.0-73.0); PLATELET COUNT AUTOMATED 232 10*3/uL (130-400); RED BLOOD COUNT 3.21 10*6/uL (4.50-5.90); RED CELL DISTRI WIDTH 12.7 % (0-14.5); WHITE BLOOD COUNT 10.1 10*3/uL (4.8-10.8)
[2024-04-12 06:22] LABS: POTASSIUM 4.7 mmol/L (3.4-5.1)
[2024-04-12 08:00] VITALS: BP 143/47
[2024-04-12] MEDS ORDERED: Cholecalciferol 2,000 UNIT TABLET (50 MCG) PO SCH (11:51)
[2024-04-12 11:57] VITALS: BP 128/78
[2024-04-12 16:00] VITALS: BP 135/49
[2024-04-12 20:30] VITALS: BP 134/59
[2024-04-13] VITALS: BP 127/61
[2024-04-13] MEDS ORDERED: Regadenoson 0.4 MG/5 ML SYR IV ONE (06:27)
[2024-04-13 08:00] VITALS: BP 144/48
[2024-04-13 12:00] VITALS: BP 110/57
[2024-04-13] MEDS ORDERED: OXYGEN NAS (13:35)
[2024-04-13] MEDS ORDERED: DOXYCYCLINE HY100 M3 PO (13:55)
[2024-04-13] MEDS ORDERED: PREDNISONE10 MG PO (13:55)
[2024-04-13] MEDS ORDERED: LOPRESSOR25 MG PO (13:55)
[2024-04-13] MEDS ORDERED: LASIX20 MG PO (14:16)
[2024-04-13] MEDS ORDERED: POTASSIUM CHLO10 ME5 PO (14:16)
== END 2024-04-13 15:45 | disposition home or self-care (01) | DRG 871 ==
LOC: ED 18:18 → 4E 23:29 → EDHOLD 23:29 → 4E 04-11 01:15
PROVIDERS: Emergency Medicine; Student in an Organized Health Care Education/Training Program; ADMIT Internal Medicine; ATTEND Internal Medicine
PROC: 4A02XM4 Measurement of Cardiac Total Activity, External Approach (ICD-10-PCS; principal; 2024-04-13)
PROC: 3E073KZ Introduction of Other Diagnostic Substance into Coronary Artery, Percutaneous Approach (ICD-10-PCS; 2024-04-13)
DX: A41.9 Sepsis, unspecified organism (principal); I21.A1 Myocardial infarction type 2; J96.01 Acute respiratory failure with hypoxia; N17.0 Acute kidney failure with tubular necrosis; I25.810 Atherosclerosis of coronary artery bypass graft(s) without angina pectoris; I13.0 Hypertensive heart and chronic kidney disease with heart failure and stage 1 through stage 4 chronic kidney disease, or unspecified chronic kidney disease; N18.31 Chronic kidney disease, stage 3a; I50.9 Heart failure, unspecified; K04.7 Periapical abscess without sinus; E11.65 Type 2 diabetes mellitus with hyperglycemia; R65.20 Severe sepsis without septic shock; J84.10 Pulmonary fibrosis, unspecified; I27.20 Pulmonary hypertension, unspecified; D53.9 Nutritional anemia, unspecified; J44.9 Chronic obstructive pulmonary disease, unspecified; E78.5 Hyperlipidemia, unspecified; E11.22 Type 2 diabetes mellitus with diabetic chronic kidney disease; M10.9 Gout, unspecified; E55.9 Vitamin D deficiency, unspecified; F32.9 Major depressive disorder, single episode, unspecified; R56.9 Unspecified convulsions; N40.0 Benign prostatic hyperplasia without lower urinary tract symptoms

== ENCOUNTER → 2024-05-29 | Outpatient (CLI) | payer MEDICARE ==
[~2024-05-29] MED LIST changes: +ADVAIR HFA 115-12 GM INH; +FISH OIL 1,0001 EAC1 PO; +LASIX20 MG PO; +LOPRESSOR25 MG PO; +METFORMIN XR500 MG PO; +OXYGEN NAS; +POTASSIUM CHLO10 ME5 PO; +PREDNISONE10 MG PO; +PRESERVISION A1 EAC7 PO
== END | disposition home or self-care (01) ==
LOC: LAB 14:49
PROVIDERS: ATTEND Radiology Radiation Oncology
DX: C61 Malignant neoplasm of prostate (principal)

== ENCOUNTER → 2024-06-19 | Outpatient (CLI) | payer MEDICARE ==
[2024-06-19 16:16] LABS: ALKALINE PHOSPHATASE 65 U/L (46-116); SGPT/ALT 16 U/L (5-49); TOTAL PROTEIN 7.6 gm/dL (6.0-8.0)
== END | disposition home or self-care (01) ==
LOC: LAB 14:10
PROVIDERS: ATTEND Internal Medicine Critical Care Medicine
DX: J84.112 Idiopathic pulmonary fibrosis (principal)

== ENCOUNTER 2024-07-22 15:54 | Emergency (ER) | payer OTHER, MEDICARE ==
[~2024-07-22] VITALS: Ht 182.8 cm; Wt 95.3 kg
[2024-07-22] MEDS ORDERED: FARXIGA10 M1 PO (16:25)
[2024-07-22] MEDS ORDERED: OFEV150 MG PO (16:25)
[2024-07-22] MEDS ORDERED: LEVETIRACETAM1000 M1 PO (16:26)
[2024-07-22] MEDS ORDERED: Acetaminophen/Oxycodone 5 MG/325 MG TABLET PO ONE (18:55)
[2024-07-22 19:19] LABS: HEMATOCRIT 41.1 % (42.0-52.0); MEAN CELL VOLUME 102.8 fl (80.0-94.0); MEAN CORPUSCULAR HGB 31.3 pg (27.0-31.0); MEAN CORPUSCULAR HGB CONC 30.4 g/dl (33.0-37.0); PLATELET COUNT AUTOMATED 284 10*3/uL (130-400); RED CELL DISTRI WIDTH 13.6 % (0-14.5); WHITE BLOOD COUNT 16.7 10*3/uL (4.8-10.8)
[2024-07-22 19:20] LABS: MANUAL DIFF REFLEX YES
[2024-07-22 19:40] LABS: POTASSIUM 5.3 mmol/L (3.4-5.1)
[2024-07-22 19:44] LABS: BASOPHILS 2 % (0-1); TOTAL CELLS COUNTED 100 #CELLS
[2024-07-22 19:45] LABS: BURR CELLS FEW; OVALOCYTES FEW; PLATELET SUFFICIENCY NORMAL (NORMAL)
[2024-07-22] MEDS ORDERED: ACETAMINOPHEN 325 MG TAB PO ONE (20:30)
== END 2024-07-22 21:20 | disposition short-term general hospital (02) ==
LOC: ED 15:54
PROVIDERS: Emergency Medicine
DX: S02.2XXA Fracture of nasal bones, initial encounter for closed fracture (principal); I10 Essential (primary) hypertension; F32.A Depression, unspecified; E11.9 Type 2 diabetes mellitus without complications; J44.9 Chronic obstructive pulmonary disease, unspecified; Z79.899 Other long term (current) drug therapy; Z98.890 Other specified postprocedural states; V89.0XXA Person injured in unspecified motor-vehicle accident, nontraffic, initial encounter; Y93.89 Activity, other specified; Y92.89 Other specified places as the place of occurrence of the external cause; Y99.8 Other external cause status

== ENCOUNTER → 2024-07-26 | Outpatient (CLI) | payer MEDICARE ==
[~2024-07-26] MED LIST changes: +FARXIGA10 M1 PO; +LEVETIRACETAM1000 M1 PO; +OFEV150 MG PO
[2024-07-26 15:56] LABS: ALKALINE PHOSPHATASE 67 U/L (46-116); BUN 19 mg/dl (9-23); CHLORIDE 104 mmol/L (98-107); SGPT/ALT 20 U/L (5-49)
== END | disposition home or self-care (01) ==
LOC: LAB 14:31
PROVIDERS: ATTEND Internal Medicine Critical Care Medicine
DX: D64.9 Anemia, unspecified (principal); J84.112 Idiopathic pulmonary fibrosis

== ENCOUNTER → 2024-08-22 | Outpatient (CLI) | payer MEDICARE ==
[2024-08-22 10:15] LABS: ALKALINE PHOSPHATASE 74 U/L (46-116); SGPT/ALT 19 U/L (5-49); TOTAL PROTEIN 7.3 gm/dL (6.0-8.0)
== END | disposition home or self-care (01) ==
LOC: LAB 09:23
PROVIDERS: ATTEND Internal Medicine Critical Care Medicine
DX: J84.112 Idiopathic pulmonary fibrosis (principal)

== ENCOUNTER → 2024-09-21 | Outpatient (CLI) | payer MEDICARE ==
[2024-09-21 10:38] LABS: BASO # 0.1 10*3/uL (0.0-0.1); BASO % 1.7 % (0.0-1.0); EOS # 0.6 10*3/uL (0.0-0.4); EOS % 7.7 % (1.0-4.0); HEMATOCRIT 41.9 % (42.0-52.0); MEAN CELL VOLUME 97.2 fl (80.0-94.0); MEAN CORPUSCULAR HGB 29.9 pg (27.0-31.0); MEAN CORPUSCULAR HGB CONC 30.8 g/dl (33.0-37.0); MEAN PLATELET VOLUME 9.4 fl (9.6-12.3); MONO # 0.8 10*3/uL (0.1-1.0); MONO % 10.4 % (3.0-9.0); NEUT # 4.7 10*3/uL (2.3-7.9); NEUT % 61.6 % (47.0-73.0); PLATELET COUNT AUTOMATED 262 10*3/uL (130-400); RED BLOOD COUNT 4.31 10*6/uL (4.50-5.90); RED CELL DISTRI WIDTH 12.8 % (0-14.5); WHITE BLOOD COUNT 7.7 10*3/uL (4.8-10.8)
[2024-09-21 11:08] LABS: POTASSIUM 4.6 mmol/L (3.4-5.1); TOTAL PROTEIN 6.9 gm/dL (6.0-8.0)
== END | disposition home or self-care (01) ==
LOC: LAB 10:12
PROVIDERS: Internal Medicine; ATTEND Internal Medicine Critical Care Medicine
DX: I12.9 Hypertensive chronic kidney disease with stage 1 through stage 4 chronic kidney disease, or unspecified chronic kidney disease (principal); E11.22 Type 2 diabetes mellitus with diabetic chronic kidney disease; N18.31 Chronic kidney disease, stage 3a; D63.1 Anemia in chronic kidney disease; J84.112 Idiopathic pulmonary fibrosis; I25.10 Atherosclerotic heart disease of native coronary artery without angina pectoris; J43.2 Centrilobular emphysema; J84.10 Pulmonary fibrosis, unspecified; C61 Malignant neoplasm of prostate; F41.9 Anxiety disorder, unspecified

== ENCOUNTER → 2024-10-30 | Outpatient (CLI) | payer MEDICARE ==
[2024-10-30 12:58] LABS: SGPT/ALT 17 U/L (5-49)
== END | disposition home or self-care (01) ==
LOC: LAB 12:01
PROVIDERS: ATTEND Internal Medicine Critical Care Medicine
DX: J84.112 Idiopathic pulmonary fibrosis (principal)

== ENCOUNTER → 2024-11-21 | Outpatient (CLI) | payer MEDICARE ==
[2024-11-21 09:53] LABS: SGPT/ALT 32 U/L (5-49)
== END | disposition home or self-care (01) ==
LOC: LAB 08:39
PROVIDERS: ATTEND Internal Medicine Critical Care Medicine
DX: J84.112 Idiopathic pulmonary fibrosis (principal)

== ENCOUNTER → 2025-02-12 | Outpatient (CLI) | payer MEDICARE ==
[2025-02-12 10:37] LABS: SGPT/ALT 19 U/L (5-49)
== END | disposition home or self-care (01) ==
LOC: LAB 09:39
PROVIDERS: ATTEND Internal Medicine Critical Care Medicine
DX: J84.112 Idiopathic pulmonary fibrosis (principal)